=== PATIENT | female | born 1970 | race Caucasian/White ===

== ENCOUNTER → 2022-08-16 | Outpatient (CLI) | payer OTHER ==
[2022-08-16 13:56] LABS: HEMATOCRIT 43 % (35-52); HEMOGLOBIN 14.3 g/dL (11.5-16.0); LYMPHOCYTES % (AUTO) 26 % (12-44); MEAN CORPUSCULAR HEMOGLOBIN 30 pg (25-34); MEAN CORPUSCULAR HGB CONC 33 g/dL (32-36); MEAN CORPUSCULAR VOLUME 90 fL (80-99); MEAN PLATELET VOLUME 10.6 fL (9.0-12.2); NEUTROPHILS % (AUTO) 66 % (42-75); PLATELET COUNT 431 10^3/uL (130-400); WHITE BLOOD COUNT 8.8 10^3/uL (4.3-11.0)
[2022-08-16 13:57] LABS: BASOPHILS # (AUTO) 0.1 10^3/uL (0.0-0.1); BASOPHILS % (AUTO) 1 % (0-10); EOSINOPHILS # (AUTO) 0.3 10^3/uL (0.0-0.3); EOSINOPHILS % (AUTO) 3 % (0-10); LYMPHOCYTES # (AUTO) 2.3 X 10^3 (1.0-4.0); MONOCYTES # (AUTO) 0.5 X 10^3 (0.0-1.0); MONOCYTES % (AUTO) 5 % (0-12); NEUTROPHILS # (AUTO) 5.8 X 10^3 (1.8-7.8)
[2022-08-16 14:00] LABS: BUN/CREATININE RATIO 17; CARBON DIOXIDE 26 MMOL/L (21-32); CHLORIDE 102 MMOL/L (98-107); CREATININE SERUM 0.59 MG/DL (0.60-1.30); GFR ESTIMATED 108; GLUCOSE 205 MG/DL (70-105); POTASSIUM 4.6 MMOL/L (3.6-5.0); SODIUM 138 MMOL/L (135-145)
[2022-08-16 14:01] LABS: ALANINE AMINOTRANSFERASE 24 U/L (0-55); ALBUMIN 4.6 GM/DL (3.2-4.5); ALKALINE PHOSPHATASE 82 U/L (40-136); BILIRUBIN,TOTAL 0.3 MG/DL (0.1-1.0); CALCIUM 10.4 MG/DL (8.5-10.1); TOTAL PROTEIN 7.5 GM/DL (6.4-8.2)
[2022-08-17 00:21] LABS: CHOLESTEROL 286 MG/DL (< 200); HDL CHOLESTEROL 47 MG/DL (40-60); TRIGLYCERIDES 316 MG/DL (<150); VLDL CHOLESTEROL 63 MG/DL (5-40)
== END ==
LOC: LABNPT 13:11
PROVIDERS: ATTEND Registered Nurse Emergency
DX: Z12.39 Encounter for other screening for malignant neoplasm of breast (principal); I16.0 Hypertensive urgency; E78.2 Mixed hyperlipidemia; E11.22 Type 2 diabetes mellitus with diabetic chronic kidney disease; I12.9 Hypertensive chronic kidney disease with stage 1 through stage 4 chronic kidney disease, or unspecified chronic kidney disease; N18.9 Chronic kidney disease, unspecified
CPT/HCPCS: 80053; 80061; 82043; 83036; 84443; 85025

== ENCOUNTER → 2022-10-15 | Outpatient (CLI) | payer OTHER ==
[~2022-10-15] VITALS: Ht 154.9 cm; Wt 81.8 kg
[~2022-10-15] MED LIST: LIDOCAINE 1% INJ 30 ML (XYLOCAINE) VIAL INJ ONE; LIDOCAINE 1% INJ 30 ML (XYLOCAINE) VIAL ONE
--- NOTE | 2022-10-15 14:31 | Diagnostic Imaging Report ---
INDICATION: Left breast calcifications. Patient presents for stereotactic biopsy. DETAILS OF THE PROCEDURE: The patient was brought to the stereotactic suite and placed in a chair in a sitting upright position. The left breast was positioned lateral medial. Stereotactic imaging was performed. The cluster of microcalcifications in the upper and outer aspect of the left breast were stereotactically targeted. All images were viewed on a dedicated workstation. The lateral left breast was then prepped and draped in the usual sterile fashion. A small amount of 1% lidocaine was utilized for local anesthesia. An 8 gauge needle was advanced from a lateral medial approach and placed per stereotactic coordinates. Additional lidocaine was administered. A total of 4 core biopsies was performed utilizing the 8 gauge vacuum-assisted device. Specimen radiograph demonstrates numerous microcalcifications within sample labeled #5. A marker clip was then deployed. A followup 2D CC and lateral medial mammogram was performed demonstrating a marker clip in the upper left breast. The patient tolerated the procedure well and left the Department in stable condition. IMPRESSION: Successful stereotactic biopsy of left breast calcifications utilizing the vacuum assisted device. Pathology results are currently pending. Dictated by: Dictated on workstation # [id number]
== END ==
LOC: RAD 10:06
PROVIDERS: ATTEND Registered Nurse Emergency
DX: R92.0 Mammographic microcalcification found on diagnostic imaging of breast (principal)
CPT/HCPCS: 19081; A4648